=== PATIENT | female | born 1990 | race Hispanic/Latino ===

== ENCOUNTER 2022-08-11 17:16 | Emergency (ER) | payer MEDICAID ==
[~2022-08-11] VITALS: Ht 160 cm; Wt 68.9 kg
[2022-08-11 17:35] VITALS: BP 115/62
[2022-08-11] MEDS ORDERED: CEPH500T PO (17:55)
[2022-08-11] MEDS ORDERED: CETI10CA5 PO (17:55)
[2022-08-11] MEDS ORDERED: DiphenhydrAMINE HCL 50 MG/ML VIAL IM ONE (18:00)
== END 2022-08-11 18:09 | disposition home or self-care (01) ==
LOC: EDH 17:16
DX: S00.561A Insect bite (nonvenomous) of lip, initial encounter (principal); O26.892 Other specified pregnancy related conditions, second trimester; Z3A.18 18 weeks gestation of pregnancy; W57.XXXA Bitten or stung by nonvenomous insect and other nonvenomous arthropods, initial encounter; Y93.89 Activity, other specified; Y92.89 Other specified places as the place of occurrence of the external cause; Y99.8 Other external cause status
CPT/HCPCS: 99283; 96372; J1200

== ENCOUNTER 2022-08-30 16:20 | Observation (INO) | payer MEDICAID ==
[~2022-08-30] VITALS: Ht 162.6 cm; Wt 69.9 kg
[~2022-08-30 16:20] MED LIST: CEPH500T PO; CETI10CA5 PO
[2022-08-30 16:33] VITALS: BP 118/68
[2022-08-30 18:40] LABS: APPEARANCE,URINE CLEAR (CLEAR); BILIRUBIN,URINE NEGATIVE (NEGATIVE); COLOR,URINE COLORLESS (YELLOW); GLUCOSE, URINE (UA) NEGATIVE (NEGATIVE); KETONES,URINE NEGATIVE (NEGATIVE); LEUKOCYTE ESTERASE ,URINE NEGATIVE Leu/uL (NEGATIVE); NITRATE,URINE NEGATIVE (NEGATIVE); OCCULT BLOOD,URINE NEGATIVE (NEGATIVE); PROTEIN,URINE NEGATIVE (NEGATIVE); UROBILINOGEN,URINE 0.2 mg/dL (0.2-1.0)
[2022-08-30 18:44] LABS: MUCUS,URINE RARE LPF (None Seen); RBC,URINE 0-1 /HPF (0-1); WBC,URINE 0-1 /HPF (0-1)
== END 2022-08-30 18:55 | disposition home or self-care (01) ==
LOC: EDH 16:20 → EDSTATUS 16:44 → LDH 16:45
PROVIDERS: ADMIT Internal Medicine; ATTEND Internal Medicine
DX: O62.9 Abnormality of forces of labor, unspecified (principal); O26.892 Other specified pregnancy related conditions, second trimester; R10.30 Lower abdominal pain, unspecified; R42 Dizziness and giddiness; Z3A.21 21 weeks gestation of pregnancy
CPT/HCPCS: 59025; 81001; G0378 ×2; G0379